=== PATIENT | female | born 1955 | race Hispanic/Latino ===

== ENCOUNTER 2019-11-01 15:30 | Outpatient (CLI) | payer OTHER ==
--- NOTE | 2019-11-01 17:39 | MRI ---
MRI OF THE RIGHT SHOULDER WITHOUT CONTRAST: 11/01/19 INDICATION: Right shoulder pain, arm pain since July 2019. COMPARISON: None. FINDINGS: There are complete tears involving the supraspinatus and infraspinatus with retraction of the tendons to the level of the superior humeral head. There I moderate tendinosis of the subscapularis. Biceps tendon is located. There is moderate intrasubstance degeneration involving the intra-articular long h ead of the biceps tendon. There is mild degenerative signal involving the biceps anchor complex and s uperior glenoid labrum. There is mild glenohumeral chondrosis. There is mild muscular atrophy of the supraspinatus and infraspinatus. There is mild AC joint osteoarthrosis. There is a type II acromion. The inferior glenoid humeral labral ligamentous complex appears intact. IMPRESSION: 1. Massive rotator cuff tear with mild supraspinatus and infraspinatus muscular atrophy. 2. Moderate biceps tendinosis. 3. Mild degenerative signal involving the biceps anchor complex superior glenoid labrum. 4. Mild AC joint osteoarthrosis. 5. Moderate glenohumeral chondrosis. POS: CET
== END 2019-11-01 15:31 | disposition home or self-care (01) ==
LOC: SCSMRI 15:30
PROVIDERS: ATTEND Orthopaedic Surgery
DX: S46.911A Strain of unspecified muscle, fascia and tendon at shoulder and upper arm level, right arm, initial encounter (principal); M75.101 Unspecified rotator cuff tear or rupture of right shoulder, not specified as traumatic; M62.511 Muscle wasting and atrophy, not elsewhere classified, right shoulder; M19.011 Primary osteoarthritis, right shoulder; M94.211 Chondromalacia, right shoulder; M75.22 Bicipital tendinitis, left shoulder

== ENCOUNTER 2024-09-21 09:10 | Outpatient (CLI) | payer MEDICARE | END 2024-09-21 09:11 | disposition home or self-care (01) | LOC: BICMAMMO 09:10 | PROVIDERS: ATTEND Family Medicine | DX: Z12.31 Encounter for screening mammogram for malignant neoplasm of breast (principal); M85.80 Other specified disorders of bone density and structure, unspecified site; Z78.0 Asymptomatic menopausal state | CPT/HCPCS: 77063; 77067; 77080 ==

== ENCOUNTER 2025-06-05 18:35 | Emergency (ER) | payer MEDICARE ==
[~2025-06-05 18:35] MED LIST: Iopamidol-370 76% 500 ML MDV (1 ML CHARGE) ONE
[2025-06-05 19:38] LABS: #Basophils 0.05 10x3/uL (0.0-0.2); #Eosinophils 0.10 10x3/uL (0.0-0.7); #Monocytes 0.64 10x3/uL (0.11-0.59); #Neutrophils 3.49 10x3/uL (1.40-6.50); %Basophils 0.8 % (0.0-1.0); %Eosinophils 1.6 % (0.0-10.0); %Lymphocytes 31.4 % (21.0-51.0); %Monocytes 10.1 % (0.0-10.0); %Neutrophils 55.2 % (42.0-75.0); Hematocrit 38.0 % (36.0-47.0); Hemoglobin 12.5 g/dL (12.0-16.0); Mean Corpuscular Hemoglobin 28.1 pg (27.0-31.0); Mean Corpuscular Volume 85.4 fL (78.0-98.0); Platelet Count 299 10x3/uL (130-400); Red Blood Cell (RBC) Count 4.45 mill/uL (4.20-5.40); White Blood Cell (WBC) Count 6.33 10x3/uL (4.8-10.8)
[2025-06-05 19:56] LABS: ALT (SGPT) 14 U/L (Less than 34); AST (SGOT) 24 U/L (11-34); Albumin 3.8 g/dL (3.1-4.5); Alkaline Phosphatase 68 U/L (40-110); Anion Gap 16 mmol/L (10-20); BUN (Urea Nitrogen) 17 mg/dL (9.8-20.1); Bilirubin, Total 0.6 mg/dL (0.3-1.2); Calc. Creatinine Clearance 0 mL/min (70-130); Calcium 9.5 mg/dL (7.8-10.44); Carbon Dioxide 25 mmol/L (23-31); Chloride 103 mmol/L (98-107); Globulin 3.4 g/dL (2.4-3.5); Glucose 125 mg/dL (80-115); Potassium 3.6 mmol/L (3.5-5.1); Sodium 140 mmol/L (136-145)
[2025-06-05] MEDS ORDERED: Ketorolac Tromethamine 30 MG (1 mL) VIAL ONE (21:44)
== END 2025-06-05 22:16 | disposition home or self-care (01) ==
LOC: ERS 18:35
DX: M54.6 Pain in thoracic spine (principal); R20.2 Paresthesia of skin; I10 Essential (primary) hypertension; Z55.6 Problems related to health literacy
CPT/HCPCS: 71045; 71275; 74174; 80053; 83880; 84484; 85025; 93005; J1885; 36415; 96374; 96375; Q9967